=== PATIENT | female | born 1995 | race Caucasian/White ===

== ENCOUNTER 2018-08-14 15:09 | Emergency (ER) | payer OTHER ==
--- NOTE | 2018-08-14 15:27 | PDOC ---
Rapid Medical Evaluation Chief Complaint: Asthma Time Seen by Provider: 08/14/18 15:17 Medical Evaluation: 08/14/18 15:22 I have performed a brief in-person evaluation of this patient. The patient presents with a chief complaint of: 2mos, coughing./asthma symptoms.No fevers/ no phlegm. Unable to be seen by PMD. Minimal resolve with albuterol, Pertinent physical exam findings: tight insp wheezing, speaks in full sentences , Coarse deep cough I have ordered the following: / UCG,Duoneb x 2, Prednisone 60mg PO, CXR The patient will proceed to the ED for further evaluation 08/14/18 15:22 08/14/18 15:30 08/14/18 15:31 Discharge Disposition - Diagnosis Asthma - Referrals - Patient Instructions - Post Discharge Activity
[2018-08-14 15:28] VITALS: BP 135/91; PULSE 107; TEMP 99.7; BMI 41.3
[2018-08-14] MEDS ORDERED: predniSONE 20 MG TABLET (UD) PO ONE (15:29)
[2018-08-14] MEDS: ALBUTEROL SO4 2.5/IPRATROPIUM 0.5 INH SOL 3 ML VIAL.NEB. NEB SCH ×2 (15:34→16:00)
[2018-08-14] MEDS ORDERED: ALBUTEROL SO4 2.5/IPRATROPIUM 0.5 INH SOL 3 ML VIAL.NEB. NEB ONE ×3 (15:51→16:53)
[2018-08-14] MEDS ORDERED: predniSONE 20 MG TABLET (UD) ONE (15:51)
--- NOTE | 2018-08-14 16:02 | PDOC ---
History of Present Illness - General Chief Complaint: Asthma Stated Complaint: DIFFICULTY BREATHING Time Seen by Provider: 08/14/18 15:17 History Source: Patient Exam Limitations: No Limitations - History of Present Illness Initial Comments: 08/14/18 15:53 23 yr female history of asthma states 2 months coughing worse at night. Pt using albuterol inhaler as needed. Pt was seen at [facility] tuesday given inhaler no steroids. Pt has no history of intubations or overnight hospitalizations. Pt speaking full sentences. no other pmhx. Timing/Duration: reports: getting worse Severity: reports: moderate Possible Cause: Yes: occasional episodes Associated Symptoms: reports: chest pain/soreness, cough. denies: fever/chills Past History - Past Medical History Allergies/Adverse Reactions: Allergies Allergy/AdvReac Type Severity Reaction Status Date / Time No Known Allergies Allergy Verified 08/14/18 15:25 Home Medications: Ambulatory Orders Albuterol 0.083% Nebulizer Juju [Ventolin 0.083%] 1 neb NEB Q4H PRN 08/14/18 Beclomethasone Dipropionate [Qvar] 8.7 gm IH BID #1 aer.w.adap 08/14/18 Prednisone [Deltasone] 40 mg PO DAILY #14 tablet 08/14/18 Asthma: Yes COPD: No - Suicide/Smoking/Psychosocial Hx Smoking History: Never smoked Respiratory Specific PMHX - Complaint Specific PMHX Angina: No Bronchitis: Yes Pneumonia: No Pulmonary Embolus: No TB (Tuberculosis): No Review of Systems - Review of Systems Able to Perform ROS?: Yes Is the patient limited Swedish proficient: No Constitutional: No: Symptoms Reported HEENTM: No: Symptoms Reported Respiratory: Yes: Cough, Wheezing *Physical Exam - Vital Signs Last Vital Signs Temp Pulse Resp BP Pulse Ox 99.7 F H 107 H 18 135/91 97 08/14/18 15:24 08/14/18 15:24 08/14/18 15:24 08/14/18 15:24 08/14/18 15:24 - Physical Exam General Appearance: Yes: Nourished, Appropriately Dressed HEENT: positive: EOMI, ANA Neck: positive: Supple. negative: Tender Respiratory/Chest: positive: Decreased Breath Sounds, Rhonchi, Wheezing Cardiovascular: positive: Regular Rhythm, Regular Rate Gastrointestinal/Abdominal: positive: Normal Bowel Sounds, Soft Musculoskeletal: positive: Normal Inspection Extremity: positive: Normal Capillary Refill, Normal Inspection, Normal Range of Motion Integumentary: positive: Normal Color, Dry, Warm Neurologic: positive: arch support maker II-XII NML intact, Fully Oriented, Alert, Normal Mood/ Affect, Normal Response, Motor Strength 02/11 ED Treatment Course - Medications Given in the ED: ED Medications Discontinued Medications Generic Name Dose Route Start Last Admin Trade Name Freq PRN Reason Stop Dose Admin Albuterol/Ipratropium 1 amp 08/14/18 15:30 08/14/18 15:34 Duoneb - NEB 08/14/18 15:46 1 amp Q15M KARTHIK Administration Medical Decision Making - Medical Decision Making 08/14/18 16:04 cc cough wheezing 2 months getting worse using albuterol inhaler no relief duonebs , prednisone, cxr and re-evaluate 08/14/18 17:24 CXR NEGATIVE FOR INFILTRATE PT FEELING BETTER AFTER 3 DUONEBS, MOVING AIR WELL DECREASED WHEEZING TOLERATING WATER WELL DC PLAN AND FOLLOW UP DISCUSSED *DC/Admit/Observation/Transfer Diagnosis at time of Disposition: Asthma Qualifiers: Asthma severity: moderate Asthma persistence: persistent Asthma complication type: with acute exacerbation Qualified Code(s): J45.41 - Moderate persistent asthma with (acute) exacerbation - Prescriptions Prescriptions: Beclomethasone Dipropionate [Qvar] 8.7 gm IH BID #1 aer.w.adap Prednisone [Deltasone] 40 mg PO DAILY #14 tablet - Referrals Referrals: Corby Redding MD [Staff Physician] - - Patient Instructions Printed Discharge Instructions: Asthma -- Adult Additional Instructions: drink at least 2 liters of water daily next dose prednisone tomorrow morning and take once daily for 6 more days follow with your doctor IN [place] SCHEDULED, YOU MAY ALSO WANT A PULMONARY DOCTOR TO FOLLOW UP WITH DR. REDDING return if worse!! avoid any type of smoking , second hand smoking cool mist humidifier in the sleeping area - Post Discharge Activity
[2018-08-14] MEDS ORDERED: IBUPROFEN 400 MG TABLET (FP) PO ONE ×2 (16:49→16:53)
== END 2018-08-14 17:39 | disposition home or self-care (01) ==
LOC: JERFT 15:09
PROC: 3E0F7GC Introduction of Other Therapeutic Substance into Respiratory Tract, Via Natural or Artificial Opening (ICD-10-PCS; principal; 2018-08-14)
PROC: 3E0F7GC Introduction of Other Therapeutic Substance into Respiratory Tract, Via Natural or Artificial Opening (ICD-10-PCS; 2018-08-14)
DX: J45.41 Moderate persistent asthma with (acute) exacerbation (principal)
CPT/HCPCS: 71046-TC-FY; 84703; 94640; 99281-25

== ENCOUNTER 2018-10-24 13:07 | Emergency (ER) | payer SELFPAY ==
--- NOTE | 2018-10-24 13:27 | PDOC ---
Rapid Medical Evaluation Medical Evaluation: Allergies Allergy/AdvReac Type Severity Reaction Status Date / Time No Known Allergies Allergy Verified 08/14/18 15:25 I have performed a brief in-person evaluation of this patient. The patient presents with a chief complaint of: Hx of asthma; cough with phlegm (yellow/dark brown) x 2 months; recently mother just got over her flu; denies fever; states came to ED on insistence of her mother Pertinent physical exam findings: Appears well, no wheezing noted, in no respiratory distress I have ordered the following: CXR The patient will proceed to the ED for further evaluation. 10/24/18 13:23
[2018-10-24 13:29] VITALS: BP 131/89; PULSE 89; TEMP 98.7; BMI 42.0
[2018-10-24] MEDS ORDERED: ALBUTEROL SO4 2.5/IPRATROPIUM 0.5 INH SOL 3 ML VIAL.NEB. NEB ONE ×3 (13:55→14:04)
--- NOTE | 2018-10-24 14:00 | PDOC ---
History of Present Illness - General Chief Complaint: Cold Symptoms Stated Complaint: Cold Symptoms Time Seen by Provider: 10/24/18 13:40 History Source: Patient Exam Limitations: Clinical Condition - History of Present Illness Initial Comments: 10/24/18 13:56 Patient with history of asthma present with complaint of 2 weeks history of persistent dry cough and intermittent shortness of breath. Patient denies fever , chills or shortness of breath now. Patient denies sore throat, nausea or fever. Patient denies any other symptoms Timing/Duration: other (2 weeks) Past History - Past Medical History Allergies/Adverse Reactions: Allergies Allergy/AdvReac Type Severity Reaction Status Date / Time tree and shrub pollen AdvReac Severe Hives Verified 10/24/18 13:30 Home Medications: Ambulatory Orders Benzonatate [Tessalon Pearls -] 100 mg PO TID PRN #21 capsule 10/24/18 Ipratropium [place] 2 spray NS BID PRN #1 spray 10/24/18 Loratadine 10 mg PO DAILY #10 capsule 10/24/18 Prednisone [Deltasone] 20 mg PO BID 5 Days #10 tablet 10/24/18 Asthma: Yes COPD: No - Suicide/Smoking/Psychosocial Hx Smoking History: Never smoked Hx Alcohol Use: No Drug/Substance Use Hx: No Review of Systems - Review of Systems Able to Perform ROS?: Yes Is the patient limited Yoruba proficient: No Constitutional: No: Chills, Fever HEENTM: Yes: Symptoms Reported, See HPI, Nose Congestion. No: Eye Pain, Blurred Vision, Tearing, Recent change in vision, Double Vision, Cataracts, Ear Pain, Ocular Prothesis, Ear Discharge, Nose Pain, Tinnitus, Nose Bleeding, Hearing Loss, Throat Pain, Throat Swelling, Mouth Pain, Dental Problems, Difficulty Swallowing, Mouth Swelling, Other Respiratory: Yes: Symptoms reported, See HPI, Cough, Shortness of Breath ( intermittent), Wheezing (intermittent). No: Orthopnea, SOB with Exertion, SOB at Rest, Stridor, Productive cough, Hemoptysis, Other Cardiac (ROS): No: Symptoms Reported, See HPI, Chest Pain, Edema, Irregular Heart Rate, Lightheadedness, Palpitations, Syncope, Chest Tightness, Other ABD/GI: No: Nausea, Vomiting All Other Systems: Reviewed and Negative *Physical Exam - Vital Signs Last Vital Signs Temp Pulse Resp BP Pulse Ox 98.7 F 89 22 H 131/89 99 10/24/18 13:24 10/24/18 13:24 10/24/18 13:24 10/24/18 13:24 10/24/18 13:24 - Physical Exam Comments: 10/24/18 13:57 GENERAL: Well developed, well nourished. Awake and alert. No acute distress. HEENT: Normocephalic, atraumatic. PERRLA, EOMI. No conjunctival pallor. Sclera are non-icteric. Moist mucous membranes. Oropharynx is clear. NECK: Supple. Full ROM. CARDIOVASCULAR: Regular rate and rhythm. No murmurs, rubs, or gallops. Distal pulses are 2+ and symmetric. PULMONARY: No evidence of respiratory distress. Lungs clear to auscultation bilaterally. No wheezing, rales or rhonchi. ABDOMINAL: Soft. Non-tender. Non-distended. No rebound or guarding. No organomegaly. Normoactive bowel sounds. MUSCULOSKELETAL Normal range of motion at all joints. EXTREMITIES: No cyanosis. No clubbing. No edema. SKIN: Warm and dry. Normal capillary refill. No rashes. No jaundice. NEUROLOGICAL: Alert, awake, appropriate. Gait is normal without ataxia. PSYCHIATRIC: Cooperative. Good eye contact. Appropriate mood General Appearance: Yes: Nourished, Appropriately Dressed. No: Apparent Distress Moderate Sedation - Procedure Monitoring Vital Signs: Procedure Monitoring Vital Signs Temperature 98.7 F 10/24/18 13:24 Pulse Rate 89 10/24/18 13:24 Respiratory Rate 22 H 10/24/18 13:24 Blood Pressure 131/89 10/24/18 13:24 O2 Sat by Pulse Oximetry (%) 99 10/24/18 13:24 ED Treatment Course - ADDITIONAL ORDERS Additional order review: Laboratory Results 10/24/18 13:30 Urine HCG, Qual Negative Medical Decision Making - Medical Decision Making 10/24/18 13:58 She with with history of asthma present with complaint of 2 weeks history of persistent cough and URI symptoms and nasal congestion. Lungs clear to auscultation on exams. Patient with persistent cough during exam. Nebulizer treatment with albuterol and Atrovent ordered to help with coughing. Chest x-ray ordered to rule out pneumonia or acute lung pathology. Symptoms likely URI with asthma exacerbation. Treat based on x-ray results. 10/24/18 14:24 Chest x-ray shows no acute infiltrate or pathology. She is stable for outpatient treatment for asthma exacerbation with URI and pulmonology follow-up. *DC/Admit/Observation/Transfer Diagnosis at time of Disposition: Cough Asthma Qualifiers: Asthma severity: mild Asthma persistence: intermittent Asthma complication type : with acute exacerbation Qualified Code(s): J45.21 - Mild intermittent asthma with (acute) exacerbation URI (upper respiratory infection) Qualifiers: URI type: unspecified URI Qualified Code(s): J06.9 - Acute upper respiratory infection, unspecified - Discharge Dispostion Disposition: HOME Condition at time of disposition: Stable Decision to Admit order: No - Prescriptions Prescriptions: Benzonatate [Tessalon Pearls -] 100 mg PO TID PRN #21 capsule PRN Reason: Cough Ipratropium [place] 2 spray NS BID PRN #1 spray PRN Reason: nasal congestion Loratadine 10 mg PO DAILY #10 capsule Prednisone [Deltasone] 20 mg PO BID 5 Days #10 tablet - Referrals Referrals: Corby Medina MD [Staff Physician] - - Patient Instructions Printed Discharge Instructions: DI for Common Cold Additional Instructions: Your chest x-ray was negative. Take medication as prescribed. Follow-up with referred air conditioning service technician is symptoms persist for more than 5 days. - Post Discharge Activity
== END 2018-10-24 14:26 | disposition home or self-care (01) ==
LOC: JERFT 13:07
PROC: 3E0F7GC Introduction of Other Therapeutic Substance into Respiratory Tract, Via Natural or Artificial Opening (ICD-10-PCS; principal; 2018-10-24)
DX: J45.21 Mild intermittent asthma with (acute) exacerbation (principal); J06.9 Acute upper respiratory infection, unspecified
CPT/HCPCS: 71046-TC-FY; 84703; 99281-25

== ENCOUNTER 2019-05-13 19:24 | Emergency (ER) | payer OTHER ==
[2019-05-13 19:36] VITALS: BP 149/99; PULSE 108; TEMP 100.3; BMI 43.4
[2019-05-13] MEDS ORDERED: SODIUM CHLORIDE 1,000 ML IV ONE (19:55)
[2019-05-13] MEDS ORDERED: ONDANSETRON 4 MG/2 ML VIAL IVPB ONE (19:55)
[2019-05-13] MEDS ORDERED: ONDANSETRON 4 MG/2 ML VIAL ONE (20:12)
[2019-05-13 20:19] LABS: BASO % 0.2 % (0-2.0); EOS % 9.5 % (0-4.5); HEMATOCRIT 43.6 % (32.4-45.2); HEMOGLOBIN 14.5 GM/dl (10.7-15.3); LYMPH % 16.9 % (8-40); MCH 28.4 pg (25.7-33.7); MCHC 33.2 g/dl (32.0-36.0); MEAN CELL VOLUME 85.6 fl (80-96); MEAN PLT VOLUME 8.5 fl (7.5-11.1); MONO % 5.7 % (3.8-10.2); NEUT % 67.7 % (42.8-82.8); PLATELET COUNT 369 K/MM3 (134-434); RBC 5.09 M/mm3 (3.60-5.2); RDW 13.7 % (11.6-15.6); WHITE BLOOD COUNT 14.3 K/mm3 (4.0-10.8)
[2019-05-13] MEDS ORDERED: morphine SULFATE 4 MG/ML VIAL ONE (20:19)
[2019-05-13] MEDS ORDERED: morphine CARPU-JECT 4 MG/1 ML DISP.SYRIN IVPUSH ONE (20:29)
--- NOTE | 2019-05-13 20:29 | PDOC ---
History of Present Illness - History of Present Illness Initial Comments: 05/13/19 21:59 23yo F hx asthma presents from home c/o upper abdominal pain x 6days. Pain began 6 days ago, gradual onset, intermittent, worse when swallows food or water (but not in esophagus), constantly throbbing with intermittent stabbing, localized to b/l and central upper abdomen, nonradiating. Pt has not tried any pain meds because she doesn't like using them; refuses pain meds now. Pt tried peptobismol without imrpovement. Pt is able to keep down oranges, crackers, and juice, but not heavier foods. Endorses nausea and NBNB vomiting, last emesis last night. Endorses subjective fever, bloated firm feeling in upper abdomen, and dizziness 2/2 pain. LBM today. Denies CP, SOB, dysuria, hematuria, blood in stool, D/C, DUMAS. Pt went to today but they couldn't draw blood, so she came here. Denies sick contacts, recent travel, change in diet, abdominal surgeries. States she only has periods 2x/yr and has issues with fertility. States she had lower abdominal pain 2 years ago, felt different than today, and was diagnosed with something to do with the intestine. <Astrid Ceballos - Last Filed: 05/13/19 21:59> <Isabela Martins I - Last Filed: 05/13/19 23:06> - General Chief Complaint: Pain, Acute Stated Complaint: UPPER ABDOMINAL PAIN SINCE TUESDAY Time Seen by Provider: 05/13/19 19:27 Past History - Past Medical History Asthma: Yes COPD: No - Suicide/Smoking/Psychosocial Hx Smoking History: Current every day smoker Have you smoked in the past 12 months: Yes Number of Cigarettes Smoked Daily: 5 Information on smoking cessation initiated: Yes Hx Alcohol Use: No Drug/Substance Use Hx: No <Astrid Ceballos - Last Filed: 05/13/19 21:59> <Isabela Martins I - Last Filed: 05/13/19 23:06> - Past Medical History Allergies/Adverse Reactions: Allergies Allergy/AdvReac Type Severity Reaction Status Date / Time tree and shrub pollen AdvReac Severe Hives Verified 05/13/19 19:26 Home Medications: Ambulatory Orders Albuterol Sulfate Inhaler - [Ventolin Hfa Inhaler -] 1 - 2 inh PO QID 05/13/19 Review of Systems - Review of Systems Comments:: 05/13/19 22:12 Constitutional: Positive for chills, subjective fever, sweating. Negative for fatigue. HENT: Negative for sore throat, rhinorrhea, congestion. Eyes: Negative for visual disturbance. Respiratory: Negative for shortness of breath, cough, and wheezing. Cardiovascular: Negative for chest pain, palpitations, and leg swelling. Gastrointestinal: Positive for abdominal pain, bloating, nausea, and vomiting. Negative for blood in stool, constipation, diarrhea. Genitourinary: Negative for dysuria, flank pain, and hematuria. Musculoskeletal: Negative for myalgias, back pain, and neck pain. Skin: Negative for rash. Neurological: Negative for light-headedness, syncope, weakness, numbness and headaches. Psychiatric/Behavioral: Negative for behavioral problems and confusion. <Astrid Ceballos - Last Filed: 05/13/19 21:59> *Physical Exam - Vital Signs Last Vital Signs Temp Pulse Resp BP Pulse Ox 100.3 F H 108 H 16 149/99 98 05/13/19 19:27 05/13/19 19:27 05/13/19 19:27 05/13/19 19:27 05/13/19 19:27 - Physical Exam Comments: 05/13/19 22:13 Gen: Alert, NAD, comfortable-appearing, obese HEENT: PERRL, EOMI, MMM, NCAT. No conjunctival pallor. Sclera are non-icteric. Oropharynx is clear. CV: Regular rate and rhythm. No murmurs, rubs, or gallops. PULM: No resp distress. CTAB, no wheezes, rales, or rhonchi. ABD: +severe TTP of RUQ, epigastric, and LUQ with voluntary guarding. +stretch dawson across abdomen. Soft, NND, no rebound tenderness, no CVA tenderness. BACK: No TTP of c/t/l-spine. No step-offs or deformities. MSK: No bony deformities. 2+ pulses in all extremities. NEURO: AAOx3. PERRL. No gross CN deficits. Strength and sensation grossly intact throughout. EXTREMITIES: No cyanosis. No clubbing. No edema. No calf tenderness. PSYCH: Normal mood and thought pattern. SKIN: Warm and dry. Normal capillary refill. No rashes. No jaundice. <Astrid Ceballos - Last Filed: 05/13/19 21:59> - Vital Signs Last Vital Signs Temp Pulse Resp BP Pulse Ox 100.3 F H 108 H 16 149/99 98 05/13/19 19:27 05/13/19 19:27 05/13/19 19:27 05/13/19 19:27 05/13/19 19:27 <Isabela Martins I - Last Filed: 05/13/19 23:06> ED Treatment Course - LABORATORY CBC & Chemistry Diagram: 05/13/19 20:00 05/13/19 20:00 - ADDITIONAL ORDERS Additional order review: Laboratory Results 05/13/19 05/13/19 20:00 20:00 Urine Color Yellow Urine Appearance Clear Urine pH 7.0 Urine Protein Negative Urine Glucose (UA) Negative Urine Ketones Negative Urine Blood Negative Urine Nitrite Negative Urine Bilirubin Negative Urine Urobilinogen 1.0 Ur Leukocyte Esterase Negative Urine HCG, Qual Negative 05/13/19 20:00 RBC 5.09 MCV 85.6 MCHC 33.2 RDW 13.7 MPV 8.5 Neutrophils % 67.7 Lymphocytes % 16.9 Monocytes % 5.7 Eosinophils % 9.5 H Basophils % 0.2 - Medications Given in the ED: ED Medications Discontinued Medications Generic Name Dose Route Start Last Admin Trade Name Freq PRN Reason Stop Dose Admin Ondansetron HCl 8 mg 05/13/19 19:55 05/13/19 20:18 Zofran Injection IVPB 05/13/19 19:56 8 mg ONCE ONE Administration <Astrid Ceballos - Last Filed: 05/13/19 21:59> - LABORATORY CBC & Chemistry Diagram: 05/13/19 20:00 05/13/19 20:00 - ADDITIONAL ORDERS Additional order review: Laboratory Results 05/13/19 05/13/19 05/13/19 20:10 20:00 20:00 Sodium Potassium Chloride Carbon Dioxide Anion Gap BUN Creatinine Est GFR (CKD-EPI)AfAm Est GFR (CKD-EPI)NonAf Random Glucose Lactic Acid 0.9 Calcium Total Bilirubin AST ALT Alkaline Phosphatase Total Protein Albumin Lipase 129 Urine Color Yellow Urine Appearance Clear Urine pH 7.0 Urine Protein Negative Urine Glucose (UA) Negative Urine Ketones Negative Urine Blood Negative Urine Nitrite Negative Urine Bilirubin Negative Urine Urobilinogen 1.0 Ur Leukocyte Esterase Negative Urine HCG, Qual 05/13/19 05/13/19 20:00 20:00 Sodium 139 Potassium 3.7 Chloride 104 Carbon Dioxide 27 Anion Gap 8 BUN 11.0 Creatinine 0.7 Est GFR (CKD-EPI)AfAm 141.54 Est GFR (CKD-EPI)NonAf 122.12 Random Glucose 111 H Lactic Acid Calcium 9.1 Total Bilirubin 0.4 AST 18 ALT 26 Alkaline Phosphatase 101 Total Protein 7.3 Albumin 3.7 Lipase Urine Color Urine Appearance Urine pH Urine Protein Urine Glucose (UA) Urine Ketones Urine Blood Urine Nitrite Urine Bilirubin Urine Urobilinogen Ur Leukocyte Esterase Urine HCG, Qual Negative 05/13/19 20:00 RBC 5.09 MCV 85.6 MCHC 33.2 RDW 13.7 MPV 8.5 Neutrophils % 67.7 Lymphocytes % 16.9 Monocytes % 5.7 Eosinophils % 9.5 H Basophils % 0.2 - RADIOLOGY Radiology Studies Ordered: Category Date Time Status ABDOMEN & PELVIS CT WITH CONTR [CT] Stat CT Scan 05/13/19 19:54 Taken - Medications Given in the ED: ED Medications Discontinued Medications Generic Name Dose Route Start Last Admin Trade Name Freq PRN Reason Stop Dose Admin Sodium Chloride 1,000 mls @ 1,000 mls/hr 05/13/19 19:55 05/13/19 20:18 Normal Saline - IV 05/13/19 20:54 1,000 mls/hr .Q1H ONE Administration Morphine Sulfate 4 mg 05/13/19 20:29 05/13/19 20:32 Morphine Injection - IVPUSH 05/13/19 20:30 4 mg ONCE ONE Administration Ondansetron HCl 8 mg 05/13/19 19:55 05/13/19 20:18 Zofran Injection IVPB 05/13/19 19:56 8 mg ONCE ONE Administration <Isabela Martins I - Last Filed: 05/13/19 23:06> Medical Decision Making - Medical Decision Making 05/13/19 22:04 23yo F hx asthma presents from home with intermittent stabbing upper abdominal pain and subjective fever x 6days, with N/V and bloating. Severe TTP in RUQ/ epigastric/LUQ with voluntary guarding, no rebound tenderness. 100.3F, tachy to 108, normotensive. Intermittent upper abdominal pain worse with eating and RFs of female and obese concerning for gallbladder etiology such as cholelithiasis vs cholecystitis vs cholangitis. Also consider other GI etiologies including pancreatitis, mesenteric ischemia, gastritis, bowel obstruction, or viral infection. Obtain labs and CTAP to evaluate. -CBC, CMP, Lipase, BC, UA/UC -CTAP -Dispo: pending w/u Pt requests pain meds from nurse - Morphine 4mg and Zofran 8mg ordered. IVF ordered. Labs reviewed. WBC 14.3. UA negative. <Astrid Ceballos - Last Filed: 05/13/19 21:59> *DC/Admit/Observation/Transfer <Astrid Ceballos - Last Filed: 05/13/19 21:59> - Discharge Dispostion Decision to Admit order: No <Isabela Martins I - Last Filed: 05/13/19 23:06> Diagnosis at time of Disposition: Abdominal pain Qualifiers: Abdominal location: upper abdomen, unspecified Qualified Code(s): R10.10 - Upper abdominal pain, unspecified - Discharge Dispostion Disposition: HOME Condition at time of disposition: Stable - Patient Instructions Additional Instructions: The pain take some antacid and some gas reducing medication such as Gas-X/ Follow-up with your doctor and get a chest x-ray if not improved in 2-3 days. Return to the emergency department immediately with ANY new, persistent or worsening symptoms. Continue any medications as previously prescribed by your physician. You should follow up with your primary doctor as soon as possible regarding today's emergency department visit. . Please make sure your doctor reviews the results of your emergency evaluation. Thank you for coming to the Emergency Department today for your care. It was a pleasure to see you today. Please note that your evaluation is INCOMPLETE until you follow-up with your doctor.
[2019-05-13 20:35] LABS: ALBUMIN 3.7 g/dl (3.4-5.0); BILIRUBIN,TOTAL 0.4 mg/dl (0.2-1); CALCIUM 9.1 mg/dl (8.5-10); CREATININE 0.7 mg/dl (0.55-1.3); POTASSIUM 3.7 mmol/L (3.5-5.1); TOT PROT 7.3 g/dl (6.4-8.2)
--- NOTE | 2019-05-13 21:33 | PDOC ---
Documentation entered by Yifan Hagan SCRIBE, acting as scribe for Isabela Martins MD. Isabela Martins MD: This documentation has been prepared by the Bentley cortez Andrys, SCRIBE, under my direction and personally reviewed by me in its entirety. I confirm that the documentation accurately reflects all work, treatment, procedures, and medical decision making performed by me. Attending Attestation - Resident Resident Name: AlexdemetriusAstrid - ED Attending Attestation I have performed the following: I have examined & evaluated the patient, The case was reviewed & discussed with the resident, I agree w/resident's findings & plan, Exceptions are as noted - HPI HPI: 05/13/19 20:37 The patient is a 23 year old female with a significant past medical history of asthma who presents to the ED with epigastric pain for 6 days. Patient reports a gradual onset of intermittent epigastric pain that is worsened when swallowing. Patient states her epigastric pain stabbing in sensation when she swallows liquids.She reports her epigastric pain radiates to her bilateral flanks. Patient also reports nausea, non bloody non bilious vomiting, and subjective fever associated with present symptoms. She states she is unable to eat secondary to vomiting. Patient took pepto bismol earlier with no relief. Denies diarrhea. Denies hematochezia or hematuria. Denies cough or shortness of breath. Denies chest pain. Denies back pain. Denies any other symptoms. PAST MEDICAL HISTORY: asthma PAST SURGICAL HISTORY: (4 years ago) FAMILY HISTORY: no pertinent history SOCIAL HISTORY: Pt lives with family and is employed. MEDICATIONS: reviewed ALLERGIES: As per nursing notes General: + fever. No weakness, no weight loss HEENT: No change in vision. No sore throat,. No ear pain Cardiovascular: No chest pain or shortness of breath Respiratory:No cough, or wheezing. Gastrointestinal: + abdominal pain, nausea, vomiting. No rectal bleeding Genitourinary: No dysuria, hematuria, or frequency Musculoskeletal: No joint or muscle pain or swelling Neurologic: No headache, vertigo, dizziness or loss of consciousness Psychiatric: nor depression Skin: No rashes or easy bruising Endocrine: no increased thirst or abnormal weight change Allergic: no skin or latex allergy All other systems reviewed and normal 05/13/19 20:42 - Physicial Exam PE: 05/13/19 20:37 General: + morbidly obese. Well-nourished, no acute distress HEENT: Throat: Normal, tonsils normal, no erythema or exudate Neck: Supple, no meningeal signs, no lymphadenopathy Eyes::Pupils equal reactive and round, extraocular motion intact Chest: Nontender to palpation Cardiac: S1-S2 normal, regular rate and rhythm, no murmurs rubs or gallops Respiratory: Lungs clear to auscultation bilateral Abdomen: + tenderness and guarding in the right upper quadrant and epigastric region. Soft, nondistended, normal bowel sounds. Extremities: Warm, dry, no cyanosis, clubbing, or edema Skin: No rashes Neuro: Alert and oriented x3, nonfocal exam, grossly intact, normal gait Psych: Normal mood and affect - Medical Decision Making 05/13/19 21:29 Assessment and plan: This is 23-year-old female who is morbidly obese and comes in complaining of upper abdominal pain times several days. On exam patient did have moderate tenderness right upper quadrant and epigastric was no rebound tenderness. Patient had workup initiated including CBC, comp, lipase, blood cultures, CAT scan. Patient given fluids and pain medication. 05/13/19 23:04 This CAT scan was negative for any acute intra-abdominal or pelvic pathology. Blood work did show a mildly elevated white count that could be consistent with a viral etiology. CAT scan did make mention of some questionable early pneumonia however patient has no cough congestion or symptoms of pneumonia so will not start treatment at this time patient does have a primary care doctor that she can get close follow-up with and I recommended that she have a chest x- ray if symptoms persist. Patient discharged home given copies of her blood work and CAT scan
[2019-05-13] MEDS ORDERED: ALBUTEROL SO4 8 GM HFA INHALER IH PRN (23:02)
--- NOTE | 2019-05-13 23:17 | HP ---
CHIEF COMPLAINT: Abdominal pain PCP: None HISTORY OF PRESENT ILLNESS: This is a 23 year-old female with a PMH significant for asthma, who presented to the ED for evaluation of abdominal pain and vomiting x 6 days. Patient reports last Tuesday she developed upper abdominal pain which she describes as extending across her upper abdomen. The pain is worse with food. It is constant but waxes and wanes with food intake. She has been vomiting solid foods, but able to tolerate water and soup. Today she had an episode of sweats. Her temp at home was 101.9. Her last BM was earlier today, brown, formed stool. She denies diarrhea, constipation. Denies blood in urine and stool. ER course was notable for: (1) (2) (3) Recent Travel: PAST MEDICAL HISTORY: PAST SURGICAL HISTORY: Social History: Smoking: Alcohol: Drugs: Family History: Allergies tree and shrub pollen Adverse Reaction (Severe, Verified 05/13/19 19:26) Hives HOME MEDICATIONS: Home Medications Medication Instructions Recorded Albuterol Sulfate Inhaler - 1 - 2 inh PO QID 05/13/19 [Ventolin Hfa Inhaler -] REVIEW OF SYSTEMS CONSTITUTIONAL: Absent: fever, chills, diaphoresis, generalized weakness, malaise, loss of appetite, weight change HEENT: Absent: rhinorrhea, nasal congestion, throat pain, throat swelling, difficulty swallowing, mouth swelling, ear pain, eye pain, visual changes CARDIOVASCULAR: Absent: chest pain, syncope, palpitations, irregular heart rate, lightheadedness , peripheral edema RESPIRATORY: Absent: cough, shortness of breath, dyspnea with exertion, orthopnea, wheezing, stridor, hemoptysis GASTROINTESTINAL: Absent: abdominal pain, abdominal distension, nausea, vomiting, diarrhea, constipation, melena, hematochezia GENITOURINARY: Absent: dysuria, frequency, urgency, hesitancy, hematuria, flank pain, genital pain MUSCULOSKELETAL: Absent: myalgia, arthralgia, joint swelling, back pain, neck pain SKIN: Absent: rash, itching, pallor HEMATOLOGIC/IMMUNOLOGIC: Absent: easy bleeding, easy bruising, lymphadenopathy, frequent infections ENDOCRINE: Absent: unexplained weight gain, unexplained weight loss, heat intolerance, cold intolerance NEUROLOGIC: Absent: headache, focal weakness or paresthesias, dizziness, unsteady gait, seizure, mental status changes, bladder or bowel incontinence PSYCHIATRIC: Absent: anxiety, depression, suicidal or homicidal ideation, hallucinations. PHYSICAL EXAMINATION Vital Signs - 24 hr 05/13/19 19:27 Temperature 100.3 F H Pulse Rate 108 H Respiratory 16 Rate Blood Pressure 149/99 O2 Sat by Pulse 98 Oximetry (%) GENERAL: Awake, alert, and fully oriented, in no acute distress. HEAD: Normal with no signs of trauma. EYES: Pupils equal, round and reactive to light, extraocular movements intact, sclera anicteric, conjunctiva clear. No lid lag. EARS, NOSE, THROAT: Ears normal, nares patent, oropharynx clear without exudates. Moist mucous membranes. NECK: Normal range of motion, supple without lymphadenopathy, JVD, or masses. LUNGS: Breath sounds equal, clear to auscultation bilaterally. No wheezes, and no crackles. No accessory muscle use. HEART: Regular rate and rhythm, normal S1 and S2 without murmur, rub or gallop. ABDOMEN: Soft, nontender, not distended, normoactive bowel sounds, no guarding, no rebound, no masses. No hepatomegaly or splenomegaly. MUSCULOSKELETAL: Normal range of motion at all joints. No bony deformities or tenderness. No CVA tenderness. UPPER EXTREMITIES: 2+ pulses, warm, well-perfused. No cyanosis. No clubbing. No peripheral edema. LOWER EXTREMITIES: 2+ pulses, warm, well-perfused. No calf tenderness. No peripheral edema. NEUROLOGICAL: Cranial nerves II-XII intact. Normal speech. Normal gait. PSYCHIATRIC: Cooperative. Good eye contact. Appropriate mood and affect. SKIN: Warm, dry, normal turgor, no rashes or lesions noted, normal capillary refill. Laboratory Results - last 24 hr 05/13/19 05/13/19 05/13/19 20:00 20:00 20:00 WBC 14.3 H RBC 5.09 Hgb 14.5 Hct 43.6 MCV 85.6 MCH 28.4 MCHC 33.2 RDW 13.7 Plt Count 369 MPV 8.5 Absolute Neuts (auto) 9.7 Neutrophils % 67.7 Lymphocytes % 16.9 Monocytes % 5.7 Eosinophils % 9.5 H Basophils % 0.2 Sodium 139 Potassium 3.7 Chloride 104 Carbon Dioxide 27 Anion Gap 8 BUN 11.0 Creatinine 0.7 Est GFR (CKD-EPI)AfAm 141.54 Est GFR (CKD-EPI)NonAf 122.12 Random Glucose 111 H Lactic Acid Calcium 9.1 Total Bilirubin 0.4 AST 18 ALT 26 Alkaline Phosphatase 101 Total Protein 7.3 Albumin 3.7 Lipase Urine Color Urine Appearance Urine pH Urine Protein Urine Glucose (UA) Urine Ketones Urine Blood Urine Nitrite Urine Bilirubin Urine Urobilinogen Ur Leukocyte Esterase Urine HCG, Qual Negative 05/13/19 05/13/19 05/13/19 20:00 20:00 20:10 WBC RBC Hgb Hct MCV MCH MCHC RDW Plt Count MPV Absolute Neuts (auto) Neutrophils % Lymphocytes % Monocytes % Eosinophils % Basophils % Sodium Potassium Chloride Carbon Dioxide Anion Gap BUN Creatinine Est GFR (CKD-EPI)AfAm Est GFR (CKD-EPI)NonAf Random Glucose Lactic Acid 0.9 Calcium Total Bilirubin AST ALT Alkaline Phosphatase Total Protein Albumin Lipase 129 Urine Color Yellow Urine Appearance Clear Urine pH 7.0 Urine Protein Negative Urine Glucose (UA) Negative Urine Ketones Negative Urine Blood Negative Urine Nitrite Negative Urine Bilirubin Negative Urine Urobilinogen 1.0 Ur Leukocyte Esterase Negative Urine HCG, Qual ASSESSMENT/PLAN:
--- NOTE | 2019-05-14 14:32 | PDOC ---
Patient Follow-up (Call Back) - Post ED Follow - Up Condition at time of discharge: Stable Disposition at time of original discharge: HOME Reason for Call Back: Radiology (Call recieved from Dr. Funk about over-read for patient's CT. Pt with distended loops of bowel and ilius. States patient should return for repeat CT with oral contrast to further evaluate the bowel Spoke with patient, she states that her pain is unchanged from last night. Recommended she come back in for evaluation and repeat CT scan. Pt states she will come back to the ER.)
== END 2019-05-13 23:15 | disposition home or self-care (01) ==
LOC: FER 19:24
PROC: 3E033NZ Introduction of Analgesics, Hypnotics, Sedatives into Peripheral Vein, Percutaneous Approach (ICD-10-PCS; principal; 2019-05-13)
PROC: 3E033GC Introduction of Other Therapeutic Substance into Peripheral Vein, Percutaneous Approach (ICD-10-PCS; 2019-05-13)
PROC: 3E0337Z Introduction of Electrolytic and Water Balance Substance into Peripheral Vein, Percutaneous Approach (ICD-10-PCS; 2019-05-13)
DX: R10.10 Upper abdominal pain, unspecified (principal); J45.909 Unspecified asthma, uncomplicated
CPT/HCPCS: 36415; 74177-TC; 80053; 81003; 83605; 83690; 84703; 85025; 87040; 87086; 99282-25; J7030

== ENCOUNTER 2019-05-14 15:43 | Emergency (ER) | payer OTHER ==
[2019-05-14 15:49] VITALS: BP 133/89; PULSE 92; TEMP 99; BMI 42.4
--- NOTE | 2019-05-14 15:49 | PDOC ---
History of Present Illness - General Chief Complaint: Pain Stated Complaint: ABDOMINAL PAIN AND VOMITING FOR REPEAT CT History Source: Patient Exam Limitations: No Limitations - History of Present Illness Initial Comments: 05/14/19 15:49 23 yo F with a hx of asthma presents to the emergency department after she was called earlier today for possible ileus vs obstruction on CT abdomen and pelvis and was recalled back to [place] for additional imaging with oral contrast per radiology. Per the patient, she began having pain 7 days ago that was gradual in onset, intermittent, worsens when she swallows food, and radiates to the back bilaterally. Since her presentation yesterday, the patient has had worsening of abdominal pain and 2x episodes of vomiting non bloody with bowel movement. Per the patient, she denies the following: fevers, chills, SOB, dysuria, hematuria, chest pain, hematochezia, and headache. Allergies: NKDA Past History - Past Medical History Allergies/Adverse Reactions: Allergies Allergy/AdvReac Type Severity Reaction Status Date / Time tree and shrub pollen AdvReac Severe Hives Verified 05/14/19 15:45 Home Medications: Ambulatory Orders Albuterol Sulfate Inhaler - [Ventolin Hfa Inhaler -] 1 - 2 inh PO QID 05/13/19 Asthma: Yes COPD: No - Suicide/Smoking/Psychosocial Hx Smoking History: Current every day smoker Have you smoked in the past 12 months: Yes Number of Cigarettes Smoked Daily: 5 'Breaking Loose' booklet given: 05/13/19 Hx Alcohol Use: No Drug/Substance Use Hx: No Review of Systems - Review of Systems Able to Perform ROS?: Yes Is the patient limited Yoruba proficient: No Constitutional: No: Chills, Diaphoresis, Fever HEENTM: No: Eye Pain, Ear Pain, Nose Pain, Throat Pain, Mouth Pain Respiratory: No: Cough, Shortness of Breath, Hemoptysis Cardiac (ROS): No: Chest Pain, Lightheadedness, Palpitations, Syncope ABD/GI: Yes: Abdominal Distended, Nausea, Abdominal cramping. No: Constipated, Diarrhea, Rectal Bleeding, Vomiting, Tarry Stools : No: Burning, Dysuria, Hematuria, Incontinence Musculoskeletal: No: Back Pain, Joint Pain, Neck Pain Integumentary: No: Bruising, Erythema, Rash Neurological: No: Headache, Numbness, Tingling, Tremors Psychiatric: No: Change in Appetite Endocrine: No: Unexplained Weight Gain Hematologic/Lymphatic: No: Anemia *Physical Exam - Physical Exam General Appearance: Yes: Nourished, Appropriately Dressed, Obese. No: Apparent Distress, Intoxicated HEENT: positive: EOMI, ANA, Normal Voice, Symmetrical, Pharynx Normal, Hearing Grossly Normal. negative: Pale Conjunctivae, Scleral Icterus (R), Scleral Icterus (L), Muffled/Hoarse voice, Pharyngeal Erythema, Tonsillar Exudate, Tonsillar Erythema, Excessive drooling Neck: positive: Trachea midline, Supple. negative: Tender, Lymphadenopathy (R) , Lymphadenopathy (L), Tender lateral, Tender midline Respiratory/Chest: positive: Lungs Clear, Normal Breath Sounds. negative: Chest Tender, Respiratory Distress, Accessory Muscle Use, Crackles, Rales, Rhonchi, Stridor, Wheezing Cardiovascular: positive: Regular Rhythm, Regular Rate, S1, S2. negative: Systolic Murmur Gastrointestinal/Abdominal: positive: Normal Bowel Sounds, Tender (RUQ, LUQ, and epigastric region), Soft, Protuberent Lymphatic: negative: Adenopathy Musculoskeletal: positive: Normal Inspection. negative: CVA Tenderness, Vertebral Tenderness Extremity: positive: Normal Capillary Refill, Normal Inspection, Normal Range of Motion. negative: Tender Integumentary: positive: Normal Color, Dry, Warm Neurologic: positive: hvac manager II-XII NML intact, Fully Oriented, Alert Medical Decision Making - Medical Decision Making 05/14/19 18:33 23 yo F with a hx of asthma presents to the emergency department after she was called earlier today for possible ileus vs obstruction on CT abdomen and pelvis and was recalled back to [place] for additional imaging with oral contrast per radiology. Initial vitals; Initial Vital Signs Temp Pulse Resp BP Pulse Ox 99 F 92 H 18 133/89 100 05/14/19 15:44 05/14/19 15:44 05/14/19 15:44 05/14/19 15:44 05/14/19 15:44 Work up: will order PO oral contrast CT abdomen and pelvis per recommendations upon return to the emergency department. patient will be signed out to night attending with pending CT read. *DC/Admit/Observation/Transfer Diagnosis at time of Disposition: Abdominal pain, Nausea, Vomiting - Discharge Dispostion Disposition: HOME Condition at time of disposition: Stable - Referrals Referrals: Tabatha Curtis MD [Staff Physician] - [facility] [place] [facility] [place] [Provider Group] - Patient Instructions - Post Discharge Activity
--- NOTE | 2019-05-14 16:35 | PDOC ---
Attending Attestation - Resident Resident Name: DawitPablo - ED Attending Attestation I have performed the following: I have examined & evaluated the patient, The case was reviewed & discussed with the resident, I agree w/resident's findings & plan, Exceptions are as noted - HPI HPI: 05/14/19 17:09 23yo F hx asthma presents to the ED for a rpt CTAP after over read by radiology. Pt was evaluated in the ED yesterday for upper abdominal pain for 6 days a/w nausea, vomiting. Pt had a CTAP with IV contrast yesterday that was read by imaging slurry control operator helper as negative for acute pathology. Today, Dr. Bianchi was concerned about air fluid levels and possible obstruction and advised us to recall the patient for a CTAP with PO contrast. Pt reports pain has been persistent, more so in the epigastric area and she has had 2 episodes of NBNB emesis since last night. No other changes in sxs since visit yesterday. Reports she is passing flatus and just had a BM after finishing the PO contrast. - Physicial Exam PE: 05/14/19 17:30 GENERAL: Awake, alert, and fully oriented, in no acute distress. Well appearing , playing game on cell phone EYES: PERRLA, EOMI, sclera anicteric, conjunctiva clear ENT: Oropharynx clear without exudates. Moist mucosa NECK: Normal ROM, supple, no lymphadenopathy, JVD, or masses LUNGS: Breath sounds equal, clear to auscultation bilaterally. No wheezes, and no crackles HEART: Regular rate and rhythm, normal S1 and S2, no murmurs, rubs or gallops ABDOMEN: Soft, mild ttp to epigastric area, normoactive bowel sounds. No guarding, no rebound. No masses EXTREMITIES: Normal range of motion, no edema. No clubbing or cyanosis. No cords, erythema, or tenderness. WWP. NEUROLOGICAL: Normal speech, cranial nerves intact, equal strength and sensation b/l SKIN: Warm, Dry, normal turgor, no rashes or lesions noted. - Medical Decision Making 05/14/19 17:33 23yo F prsents to the ED for rpt CTAP with PO contrast to r/o obstruction Pt has persistent epigastric pain but appears comfortable on exam with only mild epigastric pain. Given persistent pain, air fluid levels, will rpt CTAP with PO contrast Pt declines pain meds No need for rpt labs, UA, UPT as they were done <24hrs ago 05/14/19 19:00 CTAP with no acute pathology Pt now requesting pain medications for recurrent epigastric pain Possible gastritis? Rpt abd exam benign Will give pt maalox, pepcid, viscous lidocaine Pt has been signed out to overnight attending Dr. Poon for reassessment, mgmt, dispo
[2019-05-14] MEDS ORDERED: MAG HYDROX/AL HYDROX/SIMETH 30 ML UNIT-DOSE CUP PO ONE (19:00)
[2019-05-14] MEDS ORDERED: FAMOTIDINE 20 MG TABLET PO ONE (19:00)
[2019-05-14] MEDS ORDERED: LIDOCAINE VISCOUS 2% ORAL/TOP 20 ML UNIT-DOSE CUP MM ONE (19:00)
[2019-05-14] MEDS ORDERED: MAG HYDROX/AL HYDROX/SIMETH 30 ML UNIT-DOSE CUP ONE (19:09)
[2019-05-14] MEDS ORDERED: LIDOCAINE VISCOUS 2% ORAL/TOP 20 ML UNIT-DOSE CUP ONE (19:09)
[2019-05-14] MEDS ORDERED: FAMOTIDINE 20 MG TABLET ONE (19:09)
== END 2019-05-14 19:20 | disposition home or self-care (01) ==
LOC: FER 15:43
DX: R10.9 Unspecified abdominal pain (principal); R11.2 Nausea with vomiting, unspecified
CPT/HCPCS: 74176-TC; 99282-25